=== PATIENT | female | born 1955 | race Caucasian/White ===

== ENCOUNTER 2017-03-05 12:10 | Inpatient (IN) | payer OTHER ==
[~2017-03-05] VITALS: Ht 165.1 cm; Wt 94.8 kg
[2017-03-05] VITALS (8 sets, daily range): BP systolic 132–206; BP diastolic 54–94; PULSE 66–76; RESP 14–20; O2SAT 94–100
[~2017-03-05 12:10] MED LIST: ALBU2.5V4 INHALATION; ALBU8.5H2 INHALATION; ASPI-973 PO; ATEN25TA PO; DOCU250C2 PO; FLUO60TA PO; FLUT9.9S NOSTRIL; HYDR-656 PO; INSU100C8 SUBQ; INSU100I13 SUBQ; LEVO100T6 PO; OXYC5TAB72 PO; POLY17PO6 PO; PRAV10TA2 PO
--- NOTE | 2017-03-05 12:24 | ED.REPORT ---
HPI-Abd Pain F 40 and Over Date of Service Mar 05, 2017 ED Provider: Manohar Bah DO The patient is a 61 year old female with a history of HTN, DM, alcohol, daily aspirin and ibuprofen use who presents to the ED c/o of abdominal pain and bloody stools onset this morning. Associated symptoms include back pain. The pt had a bowel movement at the ED. Per the nurse, she saw the stool and described it as, "bright, red, clots." Pt was drinking alcohol last night. She denies vomiting, dysuria and any other symptoms. Nursing Notes Stated Complaint: ANAL BLEEDING Chief Complaint: Female Abdominal Pain Nursing Notes Reviewed: Yes Allergies: Coded Allergies: Sulfa (Sulfonamide Antibiotics) (Verified Allergy, Severe, WARREN ANNY - RASH, FEVER, SICK, 03/05/17) Scheduled Aspirin (Aspirin) 81 Mg Tablet 81 MG PO QAM Atenolol (Atenolol) 25 Mg Tablet 75 MG PO QAM Fluoxetine (Fluoxetine) 60 Mg Tablet 60 MG PO QAM Insulin Aspart (NovoLOG U100 Insulin Vial) 100 U/Ml U 20 UNIT SUBQ BIDWM WITH BRUNCH AND DINNER Insulin Glargine (Lantus U100 Solostar Insulin Pen) 100 Unit/1 Ml Insuln.pen 40 UNIT SUBQ HS Levothyroxine (Levothyroxine) 100 Mcg Tablet 100 MCG PO QAM Vitamin B Complex 100 No.2 (B-100 Complex) 100 Mg Tablet.er 100 MG PO QAM Scheduled PRN Albuterol HFA (Proair HFA) 8.5 Gm Hfa.aer.ad 1-2 PUFFS INHALATION Q4H PRN PRN For Shortness of Breath Albuterol Neb Soln (Albuterol Neb Soln) 2.5 Mg/3 Ml Vial.neb 1 VIAL INHALATION Q4H PRN PRN For Shortness of Breath Bismuth Subsalicylate (Digestive Relief) 262 Mg/15 Ml Oral.susp 262 MG PO QID PRN PRN For Dyspepsia or Heartburn Fluticasone Propionate (Flonase Allergy Relief) 50 Mcg/Actuation [place].susp 1 SPRAY NOSTRIL DAILY PRN PRN ALLERGIES Hydrocortisone Acetate (Hydrocortisone Acetate) 28.4 Gm Cream..g. 1 APPLIC TP BID PRN PRN ITCHING/PSORIASIS Ibuprofen (Ibuprofen) 100 Mg Tablet 200 MG PO DAILY PRN PRN For Headache hydrOXYzine Hcl (HydrOXYzine Hcl) 25 Mg Tablet 25 MG PO Q4 PRN PRN For Itching General Time Seen by MD: 12:23 Chief Complaint Abdominal pain Hx Obtained From: Patient Arrived By: Walk-in Sudden in Onset?: Yes Onset Occurred: 1 - 4 hours ago Symptom Duration: Since onset Location: : Abdomen lower Quality: Painful Severity: Current: Moderate Associated with: Reports: Hematochezia Pertinent Negative: Pt denies other symptoms Recent Healthcare: No recent doctor visit, No recent hospitalization Similar Sx Previous: No Past Medical History Past Medical History HTN DM Smoking History Current Every Day Smoker (e-cigarette) Social History Alcohol Use: "Social" Other Social History: Good social support, Local resident Ambulatory Status Independent Review of Systems GI: Reports: Abdominal pain, Bloody/tarry stool, Hematochezia, Denies: Vomiting Female: Denies: Dysuria, Hematuria, Incontinence, Urinary frequency, Urinary urgency, Urination decreased, Urination increased Musculoskeletal: Reports: Back pain Complete sys rev & neg: except as marked. Physical Exam Vital Signs Vital Signs (First) Date Time Temp Pulse Resp B/P Pulse Ox O2 Delivery O2 Flow Rate FiO2 03/05/17 12:12 37.2 76 16 188/91 100 Room Air Initial VS: Reviewed General/Constitutional: Awake, Alert, Cooperative Respiratory / Chest: Atraumatic, Breath sounds NL, Breath sounds = bilat Cardiovascular: Heart rate NL, Regular rhythm, Heart sounds NL Abdomen: Atraumatic, Soft, Non-tender Back: Atraumatic, Full range of motion Head / Eyes: Atraumatic, Normocephalic Skin: Atraumatic, Color NL, No rash Rectal for Blood: Positive: Blood - occult heme + No stool in rectal vault Obvious maroonish blood Neurologic: Oriented X3, Speech NL, No motor deficits Upper Extremity / MS: Atraumatic, Full range of motion, No deformity Lower Extremity / Pelvis / MS: Atraumatic, Full range of motion, No deformity Interpretation & Diagnostics Interpretation & Diagnostics: CT ABDOMEN/PELVIS/CT IMPRESSION: 1. No aortic dissection. Atherosclerosis of aorta and coronary arteries. 2. Segment of thickening and stranding involving the splenic flexure and descending colon consistent with colitis. Differential diagnosis includes infectious etiology common femoral triple disease and ischemia. 3. Sigmoid diverticulosis. No active diverticulitis. 4. Remote granulomatous infections inthorax and abdomen. 5. Small hiatal hernia. 6. Severe degenerative disc isease at L5-S1 causing moderate central canal stenosis. Dictated by: Hoang Schmidt M.D. on 03/05/2017 at 14:41 Approved by: Hoang Schmidt M.D. on 03/05/2017 at 15:04 Lab Results Interpretation Result Diagram: 03/05/17 1406 03/05/17 1259 Test 03/05/17 12:59 03/05/17 14:06 03/05/17 15:07 White Blood Count 10.3th/mm3 (3.8-10.1) Red Blood Count 4.54mil/mm3 (3.90-5.20) Mean Corpuscular Volume 90.7fL (81-100) Mean Corpuscular Hemoglobin 31.5pg (27.0-35.0) Mean Corpuscular Hemoglobin Concent 34.7% (32.0-37.0) Red Cell Distribution Width 12.1% (12.3-15.4) Platelet Count 201bil/L (150-400) Neutrophils (%) (Auto) 75.8% (40-74) Lymphocytes (%) (Auto) 16.9% (14-46) Monocytes (%) (Auto) 5.0% (4-12) Eosinophils (%) (Auto) 1.6% (0-5) Basophils (%) (Auto) 0.5% (0-3) Prothrombin Time 10.8sec (8.1-12.5) Prothromb Time International Ratio 1.01ratio Sodium Level 132mEq/L (134-144) Potassium Level 4.0mEq/L (3.5-5.2) Chloride Level 92mEq/L (97-108) Carbon Dioxide Level 23mmol/L (18-29) Blood Urea Nitrogen 12mg/dL (8-27) Creatinine 0.65mg/dL (0.57-1.00) Estimat Glomerular Filtration Rate 132mL/min (>59) Glucose Level 224mg/dL (60-99) Calcium Level 9.1mg/dL (8.5-10.1) Magnesium Level 1.3mg/dL (1.6-2.6) Total Bilirubin 0.5mg/dL (0.0-1.2) Aspartate Amino Transf (AST/SGOT) 45U/L (0-50) Alanine Aminotransferase (ALT/SGPT) 46U/L (0-32) Alkaline Phosphatase 72U/L (25-165) Total Protein 7.4g/dL (6.4-8.4) Albumin 3.7g/dL (3.4-5.0) Hemoglobin 13.2g/dL (12.0-15.6) Hematocrit 38.8% (35.0-46.0) Hold Urine Received (Received) ECG Interpretation ECG Interpretation: probable left atrial enlargement Left ventricular hyptertrophy Time: 12:55 Interpreted by: ED physician Normal ECG Interpretation: Normal sinus rhythm (rate 69) Re-Eval/Medical Decision Med Decision/Clinical Course Probable ischemic colitis based on history and findings. Given the profound hypertension and diffuse abdominal pain CT was performed to further exclude other pathology. Given the amount of pain and reported bleeding that the patient has had, we will plan to admit her, continue IV hydration. Case is discussed with GI who has made further recommendations which are listed below. Re-Evaluation/Progress : Time of Eval: 13:17 Re-Evaluation/Progress Note: Pt rechecked. Rectal exam performed. No stool in rectal vault. Obvious maroonish blood Consultation #1: Referral / Consult Name: Bertram Alford MD Call Returned at: 15:31 Note: GI: no antibiotics, dc ppi drip, start oral PPI, liquid diet, po antihypertensives to reach appropriate BP, probable colonoscopy as an outpt. will see in AM unless unstable. 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 Dr. Paz's accepts admit. Counseled Regarding: Diagnosis, Lab results, Need for admission Discharge & Departure Primary Impression: Colitis Disposition: ADMITTED TO HOSPITAL Discharge Condition All VS Reviewed: Yes Condition: Stable Referrals: [facility] Scribe Attestation Portion of this note were transcribed by Jeanne Perea. I, Dr. Bah, personally performed the history, physical exam, and medical decision-making: I reviewed and confirmed the accuracy for the information in the transcribed note. Signed by: jesusita Leach, 03/05/17 1500 copies to: [facility] Manohar Bah DO Mar 05, 2017 12:24 Jeanne Perea Mar 05, 2017 12:34
[2017-03-05] MEDS ORDERED: 0.9% Sodium Chloride 1,000 ML IV ONE (12:33)
[2017-03-05] MEDS ORDERED: Pantoprazole 4 mg/mL 10 mL Inj IVPUSH ONE (12:35)
[2017-03-05] MEDS ORDERED: Pantoprazole Inj 80 MG, Pharmacy To Mix 1 EA in 0.9% Sodium Chloride 80 ML IV ONE ×2 (12:35)
[2017-03-05 13:04] LABS: BASOPHILS % (AUTO) 0.5 % (0-3); EOSINOPHILS % (AUTO) 1.6 % (0-5); Mean Corpuscular Hemoglobin 31.5 pg (27.0-35.0); Mean Corpuscular Volume 90.7 fL (81-100); NEUTROPHILS % (AUTO) 75.8 % (40-74); Platelet Count 201 bil/L (150-400)
[2017-03-05 13:22] LABS: INR 1.01 ratio
[2017-03-05] MEDS: Ondansetron 2 mg/mL 2 mL Inj IVPUSH PRN ×3 (13:25→21:48)
[2017-03-05 13:31] LABS: Magnesium 1.3 mg/dL (1.6-2.6)
[2017-03-05] MEDS ORDERED: Magnesium Sulf 4 Gm/100 mL H2O 4 GM in IV Premix 1 EACH IV ONE (13:35)
--- NOTE | 2017-03-05 15:06 | DRSVH ---
PROCEDURE: CT ANG CHEST/ABD/PEL W/WO CIBTRAST (PNL-7502) INDICATIONS: severe abd pain, hypertensive TECHNIQUE: Precontrast 5 mm thick sections acquired from the lung apices to the iliac crests. After the adminis tration of intravenous contrast, 3 mm thick sections again acquired from the lung apices to the iliac crests. 3-dimensional maximum intensity projection (MIP) oblique sagittal and coronal reformats wer e then acquired, and/or 3-dimensional volume rendering reformats. For radiation dose reduction, the following was used: automated exposure control. COMPARISON: [facility], US, ABDOMEN LTD, 05/18/2016, 9:39. [facility], CT, CT ABD PELVIS W CON, 05/18/2016, 1:09. FINDINGS: Image quality: Excellent. AORTA: Aorta is normal in caliber. No aortic aneurysm or dissection. There is moderate calcification in aorta involving the aortic arch and distal aorta consistent with atherosclerosis. There is mild f usiform dilation of distal abdominal aorta below the renal artery measured 2.1 cm. CHEST: Lungs and pleura: There are calcified nodules in right upper lobe consistent with old granulomas. No acute airspace opacities. No pleural effusions or pneumothorax. Central and peripheral airways are patent and normal in caliber. Mediastinum: Heart size is normal. No pericardial effusion. Coronary artery calcification consiste nt with other sclerosis. No mediastinal or hilar adenopathy by size criteria. Calcified lymph nodes in mediastinum and dayne bilaterally are consistent with sequelae of lipomatous infection. Central pul monary arteries are normal in size. Esophagus is normal in caliber. There is a small hiatal hernias. Bones and chest wall: Normal sist axillary lymph nodes are noted bilaterally, likely reactive. Thyro id gland is atrophic. No suspicious bony lesions. No vertebral body compression fractures. ABDOMEN: Vasculature: Celiac trunk and mesenteric arteries are patent. Renal arteries are also patent. Solid organs: Multiple calcified nodules in spleen and liver are consistent with old granulomas. Leanna er and spleen are normal in size. Gallbladder is surgically absent. Biliary system is non dilated. Pancreas enhances normally. No adrenal nodules. Both kidneys are normal in size and enhancement, w ithout hydronephrosis. Peritoneum and bowel: There is segmental thickening and stranding in the splenic flexure and descend ing colon consistent with colitis. No free fluid or air. Bowel loops are normal in caliber. There a re scattered sigmoid diverticula. No evidence for active diverticulitis. Nodes and vessels: No retroperitoneal or mesenteric adenopathy by size criteria. Inferior vena cava is normal in morphology. Bones: No suspicious bony lesions. No vertebral body compression fractures. There is severe degene rative disc disease at L5-S1 causing moderate central canal stenosis. Miscellaneous: No ventral hernias. IMPRESSION: 1. No aortic dissection. Atherosclerosis of aorta and coronary arteries. 2. Segment of thickening and stranding involving the splenic flexure and descending colon consistent with colitis. Differential diagnosis includes infectious etiology common femoral triple disease and i schemia. 3. Sigmoid diverticulosis. No active diverticulitis. 4. Remote granulomatous infections inthorax and abdomen. 5. Small hiatal hernia. 6. Severe degenerative disc isease at L5-S1 causing moderate central canal stenosis. Dictated by: Hoang Schmidt M.D. on 03/05/2017 at 14:41 Approved by: Hoang Schmidt M.D. on 03/05/2017 at 15:04
[2017-03-05] MEDS ORDERED: metroNIDAZOLE Inj 500 MG in IV Premix 1 EACH IV ONE (15:10)
[2017-03-05] MEDS ORDERED: levoFLOXacin Inj 750 MG in IV Premix 1 EACH IV ONE (15:10)
[2017-03-05] MEDS ORDERED: 0.9% Sodium Chloride 1,000 ML IV SCH (15:10)
[2017-03-05] MEDS ORDERED: HYD5C TOP (16:10)
[2017-03-05] MEDS ORDERED: HYDR28.470 TP (16:11)
[2017-03-05] MEDS ORDERED: VITA100T4 PO (16:13)
[2017-03-05] MEDS ORDERED: IBUP100T7 PO (16:13)
[2017-03-05] MEDS ORDERED: BISM-95 PO (16:13)
[2017-03-05] MEDS ORDERED: Polyethylene Glycol (PEG) 17 Gm Powder PO PRN (17:15)
[2017-03-05] MEDS: 0.9% Sodium Chloride 1,000 ML IV SCH (17:15)
[2017-03-05] MEDS ORDERED: Albuterol HFA 60 Puff 8 Gm Inhaler INHALATION PRN (17:25)
--- NOTE | 2017-03-05 17:28 | PCM.HPMED ---
Subjective Date of Service Mar 05, 2017 Primary Provider: Admitting Physician: Richard Paz DO Primary Care Physician: Other,Physician Attending Physician: Richard Paz DO Chief Complaint: Abdominal pain and bloody stool History of Present Illness: Patient is a 61-year-old female past medical history significant for hypertension diabetes mellitus in addition to alcohol use, tobacco dependence now in remission, presenting to the emergency department earlier today with a complaint of abdominal pain and bloody stools starting earlier this morning. Notes pain is worse in abdomen but also radiates to back. She had multiple bowel movements today which were containing of bright red clots, including one in the emergency department. She was drinking alcohol last night but has not been smoking cigarettes for the past few weeks that she began taping. Denies any nausea or vomiting. She had not been experiencing chills early in the day but she does endorse some chills during my evaluation at bedside on hospital floor. She has never had any abdominal pain such as this before, never experienced bloody diarrhea. She denies any associated chest pains or shortness of breath. Patient denies any headaches or dizziness or blurry vision. She had been in good state of health up until yesterday. Denies any sick contacts. Review of Systems: A 10 point review of systems was conducted and entirely negative excepting pertinent positives and negatives included in above history of present illness Allergies Coded Allergies: Sulfa (Sulfonamide Antibiotics) (Verified Allergy, Severe, WARREN ANNY - RASH, FEVER, SICK, 03/05/17) Home Medications Aspirin (Aspirin) 81 Mg Tablet 81 MG PO QAM Atenolol (Atenolol) 25 Mg Tablet 75 MG PO QAM Fluoxetine (Fluoxetine) 60 Mg Tablet 60 MG PO QAM Insulin Aspart (NovoLOG U100 Insulin Vial) 100 U/Ml U 20 UNIT SUBQ BIDWM WITH BRUNCH AND DINNER Insulin Glargine (Lantus U100 Solostar Insulin Pen) 100 Unit/1 Ml Insuln.pen 40 UNIT SUBQ HS Levothyroxine (Levothyroxine) 100 Mcg Tablet 100 MCG PO QAM Vitamin B Complex 100 No.2 (B-100 Complex) 100 Mg Tablet.er 100 MG PO QAM Scheduled PRN Albuterol HFA (Proair HFA) 8.5 Gm Hfa.aer.ad 1-2 PUFFS INHALATION Q4H PRN PRN For Shortness of Breath Albuterol Neb Soln (Albuterol Neb Soln) 2.5 Mg/3 Ml Vial.neb 1 VIAL INHALATION Q4H PRN PRN For Shortness of Breath Bismuth Subsalicylate (Digestive Relief) 262 Mg/15 Ml Oral.susp 262 MG PO QID PRN PRN For Dyspepsia or Heartburn Fluticasone Propionate (Flonase Allergy Relief) 50 Mcg/Actuation [place].susp 1 SPRAY NOSTRIL DAILY PRN PRN ALLERGIES Hydrocortisone Acetate (Hydrocortisone Acetate) 28.4 Gm Cream..g. 1 APPLIC TP BID PRN PRN ITCHING/PSORIASIS Ibuprofen (Ibuprofen) 100 Mg Tablet 200 MG PO DAILY PRN PRN For Headache hydrOXYzine Hcl (HydrOXYzine Hcl) 25 Mg Tablet 25 MG PO Q4 PRN PRN For Itching PMH HTN DM II Tobacco dependence in remission. Surgical History Appendectomy Family History Patient notes both parents of cancer. Her father testicular cancer, mother blood cancer. Recall no other medical history Social History Hx Alcohol Use: Yes Alcoholic Drinks Per Day: 1-2 per week Hx Substance Use: No Smoking Status: Current Every Day Smoker (e-cigarette) Exam Vital Signs Vital Sign - Last Date Time Temp Pulse Resp B/P Pulse Ox O2 Delivery O2 Flow Rate FiO2 03/05/17 17:06 36.8 69 20 155/63 98 Room Air General: Alert, Oriented X3, Cooperative, Mild Distress Eyes: PERRLA, EOMI, Other (sclera pink) Mouth: Mucous Membranes Dry, Other (mucous membranes are pink) Chest & Lungs: Clear to auscultation & percussion Cardiovascular: Regular Rate/Rhythm Abdomen: Tender, Non-distended, Other (normoactive, no guarding. ) Extremities: No cyanosis/clubbing/edma bilat Neurological: Grossly Neurologically Intact Lab and Diagnostics Result Diagram: 03/05/17 1406 03/05/17 1259 Assessment & Plan 61-year-old female presenting with abdominal pain bloody stool admitted for further medical evaluation and treatment # Acute abdominal pain #Bloody stools # Probable Ischemic colitis - CT scan nondiagnostic however given patient's clinical presentation and risk factors this seems certainly to be the most likely diagnosis - No evidence of infections will not continue antibiotic therapy and admission -Gastroenterology's Dr. Alford was consulted during ER presentation and will follow patient - Holding patient's aspirin while active bleeding we will consider restarting once stable especially in the setting of possible ischemic colitis. - Continue patient on clear liquid diet overnight in addition to intravenous fluid therapy. - As needed medications will be provided for pain, and nausea should represent. - Currently patient notes good control of symptoms. #Diabetes mellitus - Patient will place on sliding scale insulin this time - We will restart home Lantus with advancement of diet. Pain Evaluation: Adequate Pain Control GI Prophylaxis: Not indicated VTE Mechanical Devices: Intermittant Pneumatic CD Resuscitation Status: CPR: Attempt Resuscitation Time spent 55 minutes Richard Paz DO Mar 05, 2017 17:28
[2017-03-05] MEDS ORDERED: Glucose 40% Oral Gel 15 Gm Tube PO PRN (17:30)
[2017-03-05] MEDS: Insulin LISPRO 300 Unit/3 mL Inj SUBQ SCH ×2 (17:30→22:00)
[2017-03-05] MEDS ORDERED: Albuterol 2.5 mg/3 mL Inhalation Solution NEB PRN (17:35)
[2017-03-05] MEDS ORDERED: hydrOXYzine Pamoate 25 mg Capsule PO PRN (17:35)
--- NOTE | 2017-03-05 18:40 | NUR ---
Admit Patient arrived at 1740 from ED via stretcher. IV infusing. A/Ox3. Patient informed of plan of care and oriented to room. Pt reports nausea, IV Zofran given and effective. Admit and med rec completed by admit nurse.
[2017-03-06] VITALS (8 sets, daily range): BP systolic 128–151; BP diastolic 75–85; PULSE 64–71; RESP 17–18; O2SAT 93–96
[2017-03-06] MEDS: Ondansetron 2 mg/mL 2 mL Inj IVPUSH PRN ×7 (00:53→22:53)
[2017-03-06] MEDS: 0.9% Sodium Chloride 1,000 ML IV SCH ×3 (03:29→23:45)
--- NOTE | 2017-03-06 04:53 | NUR ---
NAUSEA/PAIN pt. c/o nausea administered prn zofran with a state of relief and pain well managed by prn morphine, pt. stated she's able to sleep for a couple of hours, no emesis and BM reported, continue on tele monitoring SR 68 per groundwater monitoring technician, VSS afebrile, has been up in the BR, steady on feet, uses call light appropriately, all needs attended, VSS afebrile, continues care.
[2017-03-06 07:03] LABS: BASOPHILS % (AUTO) 0.3 % (0-3); EOSINOPHILS % (AUTO) 1.5 % (0-5); Mean Corpuscular Hemoglobin 31.1 pg (27.0-35.0); Mean Corpuscular Volume 95.3 fL (81-100); NEUTROPHILS % (AUTO) 73.6 % (40-74); Platelet Count 183 bil/L (150-400)
[2017-03-06] MEDS: Insulin LISPRO 300 Unit/3 mL Inj SUBQ SCH ×4 (09:40→21:33)
--- NOTE | 2017-03-06 11:16 | NUR ---
Pain/Nausea Patient had nausea w/emesis immediately after consuming jello. IV Zofran 4mg administered with some relief. Pt declined IV morphine at that time. Hospitalist made aware. Patient later requested Morphine for abdominal pain 04/24. An additional dose of 4mg Zofran was also given as the pt was still mildly nauseated.
--- NOTE | 2017-03-06 17:48 | PCM.PNMED ---
Subjective Date of Service Mar 06, 2017 Subjective Patient remains in significant discomfort due to abdominal pain. Appetite is poor, she is nauseated not even able to tolerate Jell-O. No fever or chills however. Denies bloody stools overnight. Exam Vital Signs Vital Sign - Last Date Time Temp Pulse Resp B/P Pulse Ox O2 Delivery O2 Flow Rate FiO2 03/06/17 13:45 36.9 64 18 142/83 96 Room Air Intake and Output 03/05/17 03/05/17 03/06/17 Cumulative From/Thru 15:00 23:00 07:00 03/05/17 12:12 - 03/06/17 05:16 Intake Total 1099 ml 1153 ml 1376 ml 3628 ml Output Total 600 ml 600 ml Balance 1099 ml 1153 ml 776 ml 3028 ml Intake Oral 340 ml 340 ml IV Total 1099 ml 1153 ml 1036 ml 3288 ml Output Urine Total 600 ml 600 ml Exam General: Alert, Oriented X3, Cooperative, Moderate Distress Chest & Lungs: Clear to auscultation & percussion Cardiovascular: Regular Rate/Rhythm Abdomen: Tender, without overt guardingbilat Neurological: Grossly Neurologically Intact IVs and Medications Medications Reviewed: Medications were reviewed in detail Lab and Diagnostics Result Diagram: 03/06/1763403/06/1735 Assessment & Plan 61-year-old female presenting with abdominal pain bloody stool admitted for further medical evaluation and treatment # Acute abdominal pain #Bloody stools # Probable Ischemic colitis - CT scan nondiagnostic however given patient's clinical presentation and risk factors this seems certainly to be the most likely diagnosis - No evidence of infections will not continue antibiotic therapy and admission -Gastroenterology's Dr. Alford was consulted and following patient in addition - Holding patient's aspirin while active bleeding we will consider restarting once stable especially in the setting of possible ischemic colitis. - Continue patient on clear liquid diet overnight in addition to intravenous fluid therapy. - As needed medications will be provided for pain, and nausea should represent. - Currently patient notes good control of symptoms. #Diabetes mellitus - Patient will place on sliding scale insulin this time - We will restart home Lantus with advancement of diet. Pain Evaluation: Adequate Pain Control GI Prophylaxis: Not indicated VTE Mechanical Devices: Intermittant Pneumatic CD Resuscitation Status: CPR: Attempt Resuscitation Time spent 25 minutes Richard Paz DO Mar 06, 2017 17:48
--- NOTE | 2017-03-06 18:16 | CONS ---
[address] [address] CONSULTATION REPORT PATIENT: LEVI OSMAN : 1955 MR#: [id number] ADMIT: 03/05/2017 JOB ID: [id number] DATE OF SERVICE: 03/06/2017 GASTROENTEROLOGY CONSULTATION: REQUESTING PROVIDER: Manohar Bah DO REASON FOR CONSULTATION: Colitis. HISTORY OF PRESENT ILLNESS: This is a 61-year-old female with no prior history of inflammatory bowel disease. She has a couple of bowel movements, soft, formed, daily on average. No history of chronic diarrhea. She was in her usual state of health, complaining of abdominal pain mostly on the left side associated with bloody loose stools starting yesterday. There was some radiation of the pain into the back. No recent antibiotics, sick contacts, sick exposures. No one else with a similar problem. No new well water or consumption from an unusual water source. No foreign travel. In the ED she was found to have a very mild leukocytosis at 10.3, hemoglobin 14.3. She is a little hypertensive. A CAT scan revealed a segment of bowel thickening involving the splenic flexure and descending colon. She had sigmoid diverticulosis but no diverticulitis. She had a small hiatal hernia and severe degenerative disc disease through L5 to S1. As part of the protocol she had a chest CT which did not reveal any acute pathology. ALLERGIES: NO KNOWN DRUG ALLERGIES APART FROM SULFA. MEDICATIONS: The patient was taking aspirin, ibuprofen, albuterol, atenolol, fluoxetine, hydroxyzine, Flonase, bismuth subsalicylate, insulin, levothyroxine, hydrocortisone topical, vitamin B complex. She uses a stool softener at times and is written for Colace and/or MiraLAX. She also apparently has a script for oxycodone and pravastatin. PAST MEDICAL HISTORY: Diabetes, hypertension, reactive airway disease. PAST SURGICAL HISTORY: Appendectomy. FAMILY HISTORY: No GI cancers reported. SOCIAL HISTORY: The patient is a smoker. She does take regular alcohol as well. REVIEW OF SYSTEMS: There have not been any fevers or chills here in the hospital. No report of any unsolicited weight loss. She has never had a colonoscopy. PHYSICAL EXAMINATION: Temperature 36.9, pulse 64, breathing 18, blood pressure 142/83, pulse ox 96% on room air. The patient was in no distress. Alert, oriented, appropriate, cooperative, conversational. Skin: Warm and dry. Sclerae anicteric. No significant peripheral pitting edema. Lungs clear bilaterally. Good respiratory effort. Heart regular. No significant peripheral edema. Abdomen is soft. Bowel sounds present. Mild tenderness to palpation throughout, but perhaps more so on the left side. No guarding appreciated. LABORATORY: White count is now 11.4, hematocrit 38.3 with hydration, platelets 183. Sodium 135, potassium 4.0, chloride 99, bicarb 25, BUN 11, creatinine 0.65, glucose 178, calcium 7.9. Bilirubin 0.6, AST 33, ALT 35, alk phos 66, albumin 3.5. INR 1.01. IMAGING: As above. ASSESSMENT AND RECOMMENDATIONS: A 61-year-old female with what appears to be acute ischemic colitis. This is likely a consequence of her history of hypertension, smoking, and NSAID use on a regular basis. I explained the pathophysiology to the patient and that this is an entity that almost always resolves simply with time, hydration, and management of pain symptoms. I would be okay with a clear liquid diet through today, advancing to a full soft diet tomorrow if she is clinically improved. Once the patient is able to maintain adequate hydration and nutrition, and receives sufficient analgesia with oral meds, she can be eligible for discharge home. It is still quite reasonable to request a stool PCR for enteric pathogens should she have any further diarrhea, but again this is almost certainly going to be ischemic in nature. In that the patient has never had a colonoscopy, I think that it would be appropriate to pursue this as an outpatient in the next 3-4 weeks, ideally when all of the acute pathology has resolved.
[2017-03-07] MEDS: Ondansetron 2 mg/mL 2 mL Inj IVPUSH PRN ×4 (02:50→19:08)
--- NOTE | 2017-03-07 04:16 | NUR ---
Pain/Nausea c/o 7-9/10 abdominal pain. Administered PRN Q4hr IV morphine. pt reported pain 4/10, which is tolerable for her. pt reported nausea after ambulating to the restroom x2. administered IV Zofran, which is effective. will continue to monitor and provide care.
[2017-03-07 06:04] VITALS: BP 161/81; PULSE 65; RESP 16; O2SAT 99
[2017-03-07 07:01] LABS: BASOPHILS % (AUTO) 0.3 % (0-3); EOSINOPHILS % (AUTO) 3.7 % (0-5); MONOCYTES % (AUTO) 5.5 % (4-12); Mean Corpuscular Hemoglobin 31.6 pg (27.0-35.0); Mean Corpuscular Volume 97.6 fL (81-100); NEUTROPHILS % (AUTO) 73.5 % (40-74); Platelet Count 160 bil/L (150-400)
[2017-03-07] MEDS: Insulin LISPRO 300 Unit/3 mL Inj SUBQ SCH ×4 (08:00→21:31)
[2017-03-07 10:06] VITALS: BP 155/67; PULSE 65; RESP 16; O2SAT 97
[2017-03-07] MEDS: 0.9% Sodium Chloride 1,000 ML IV SCH ×2 (10:08→20:48)
--- NOTE | 2017-03-07 11:09 | NUR ---
Case Management: Clarification of patient status: Inpatient per MD order on 03/07/17. Yuri Holley RN
[2017-03-07] MEDS: Alum-Mag Hydrox-Simeth 30 mL Suspension PO PRN (12:21)
[2017-03-07 13:22] VITALS: BP 144/83; PULSE 63; RESP 18; O2SAT 97
--- NOTE | 2017-03-07 14:03 | PCM.PNMED ---
Subjective Date of Service Mar 07, 2017 Subjective pt still required iv morphine no BM still has nausea, no vomiting, poor appetite. britney worked for nausea willing to advance diet. stool PCR not sent yet Exam Vital Signs Vital Sign - Last Date Time Temp Pulse Resp B/P Pulse Ox O2 Delivery O2 Flow Rate FiO2 03/07/17 06:04 37.0 65 16 161/81 99 Nasal Cannula 1.00 Intake and Output 03/06/17 03/06/17 03/07/17 Cumulative From/Thru 15:00 23:00 07:00 03/05/17 12:12 - 03/07/17 06:04 Intake Total 300 ml 1459 ml 1708 ml 7095 ml Output Total 350 ml 400 ml 700 ml 2050 ml Balance -50 ml 1059 ml 1008 ml 5045 ml Intake Oral 300 ml 300 ml 380 ml 1320 ml IV Total 1159 ml 1328 ml 5775 ml Output Urine Total 350 ml 400 ml 700 ml 2050 ml # Bowel Movements 0 0 Exam NAD, comfortably laying down on the bed no JVD, MMM, no LAD RRR, nl s1, s2 no mrg CTAB, no w,c S, ND, hypoactive BS, LUQ td+ warm, no edema, pulses 2/2 Lab and Diagnostics Result Diagram: 03/07/1762403/07/17624 Assessment & Plan 61-year-old female presenting with abdominal pain bloody stool admitted for further medical evaluation and treatment Acute, active # Acute abdominal pain with hematochezia secondary to ischemic colitis, POA, CT 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 Linn was consulted, recommended outpatient colonoscopy, possibly stool PCR. -Overweight stool PCR to rule out infectious causes -Advanced diet to soft today -Hold off on any antibiotics and monitor symptoms closely -We will try to use Percocet instead of morphine for pain control in anticipation of discharge in 1-2days Probable acute blood loss anemia or dilutional, POA, h/h dropped from 14.3/41.2 to 11.9/36.8 today, no signs of active bleeding -monitor h/h daily for now chronic, stable #Diabetes mellitus -continue lispro SS and lantus GI Prophylaxis: Not indicated VTE Mechanical Devices: Intermittant Pneumatic CD Resuscitation Status: CPR: Attempt Resuscitation Time spent 35min Felton Macias MD Mar 07, 2017 08:14
--- NOTE | 2017-03-07 17:46 | NUR ---
Diet advanced Pt. tolerated small amounts of clear liquids this morning, and has been able to tolerate pudding and crackers this afternoon. Still requiring PRN pain and nausea medication. Receiving IV NS 100/hr.
[2017-03-07 20:00] VITALS: BP 155/72; PULSE 65; RESP 18; O2SAT 95
--- NOTE | 2017-03-07 21:52 | PROG NOTE ---
[address] [address] PROGRESS NOTE PATIENT: LEVI OSMAN : 1955 MR#: [id number] ADMIT: 03/05/2017 JOB ID: [id number] DATE: 03/07/2017 SUBJECTIVE: The patient has been trying to decline IV pain meds. Not entirely successful today. Overall, she feels much better when compared with yesterday. She has not had any significant bowel movement. She has really only tired clear liquid diet. OBJECTIVE: Vital signs demonstrate blood pressures that are slightly elevated. Pulses are acceptable in the 60s. Breathing comfortably, afebrile, 95% on room air. Alert, oriented, appropriate, cooperative, conversational. Abdomen was soft. Minimal discomfort to palpation along the left side of the abdomen. LABORATORY DATA: White count 12.7, normal differential, hemoglobin 11.9. Comprehensive metabolic panel unremarkable. ASSESSMENT AND RECOMMENDATION: This is a 61-year-old female with what appears to be an episode of acute ischemic colitis. She is slowly improving. Leukocytosis persists, but at present, I would not recommend antibiotic be started. Continued supportive care with maintenance of acceptable blood pressures and adequate IV/oral hydration should be the mainstay of therapy. Perhaps the patient can advance to a full liquid soft diet tomorrow if tolerated.
[2017-03-08 00:08] VITALS: BP 158/76; PULSE 64; RESP 17; O2SAT 97
[2017-03-08] MEDS: Ondansetron 2 mg/mL 2 mL Inj IVPUSH PRN ×4 (00:18→20:00)
[2017-03-08 04:40] VITALS: BP 165/98; PULSE 67; RESP 18; O2SAT 97
--- NOTE | 2017-03-08 05:39 | NUR ---
Nausea/Pain Pt complains of abdominal pain 6-03/24. Q4h IV morphine reduces pain to manageable level for her. Pt continues to have nausea especially after ambulation. Zofran effective.
[2017-03-08] MEDS: 0.9% Sodium Chloride 1,000 ML IV SCH ×2 (06:41→15:56)
[2017-03-08] MEDS: oxyCODONE-Acetamin 5-325 mg Tablet PO PRN ×4 (07:53→22:05)
[2017-03-08] MEDS: Insulin LISPRO 300 Unit/3 mL Inj SUBQ SCH ×4 (07:56→22:06)
[2017-03-08 08:02] VITALS: BP 174/89; PULSE 64; RESP 16; O2SAT 95
--- NOTE | 2017-03-08 08:47 | NUR ---
Elevated systolic BP 174/89 and pulse 64. Given Atenolol as ordered. patient is asymptomatic. follow up BP 160/87, pulse 63. PRN pain medication was given as ordered for abdomen pain 01/22 with effective results. Will cook constantino hospitalist with follow up BP. Will continue to monitor BP and pain.
[2017-03-08 12:04] VITALS: BP 169/93; PULSE 61; RESP 16; O2SAT 96
--- NOTE | 2017-03-08 14:18 | NUR ---
Elevated systolic BP 169/84. patient is asymptomatic and watching TV comfortably. Malcolm weber hospitalist. awaiting response back.
--- NOTE | 2017-03-08 15:27 | PCM.PNMED ---
Subjective Date of Service Mar 08, 2017 Subjective pt was still in pain, required morphine frequently, stool was not yet, decided to keep full liquid diet given her worsening pain, denied bloody stools since yesterday Exam Vital Signs Vital Sign - Last Date Time Temp Pulse Resp B/P Pulse Ox O2 Delivery O2 Flow Rate FiO2 03/08/17 12:04 37.2 61 16 169/93 96 03/08/17 08:02 Room Air 03/08/17 00:08 1.00 Intake and Output 03/07/17 03/07/17 03/08/17 Cumulative From/Thru 15:00 23:00 07:00 03/05/17 12:12 - 03/08/17 06:15 Intake Total 1198 ml 1904 ml 10064 ml Output Total 775 ml 800 ml 3625 ml Balance 423 ml 1104 ml 6572 ml Intake Oral 230 ml 700 ml 2250 ml IV Total 968 ml 1204 ml 7947 ml Output Urine Total 775 ml 800 ml 3625 ml # Bowel Movements 0 0 Exam NAD, comfortably laying down on the bed no JVD, MMM, no LAD RRR, nl s1, s2 no mrg CTAB, no w,c S, ND, hypoactive BS, LUQ td+ warm, no edema, pulses 2/2 IVs and Medications Medications Reviewed: Medications were reviewed in detail Lab and Diagnostics Result Diagram: 03/07/1762403/07/17624 Assessment & Plan 61-year-old female presenting with abdominal pain bloody stool admitted for further medical evaluation and treatment Acute, active # Acute abdominal pain with hematochezia secondary to ischemic colitis, POA, CT 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 Linn was consulted, recommended outpatient colonoscopy, possibly stool PCR. -pt still clinically not improving, although hematochezia cleared up, still require iv opioid frequently. -will get stool PCR to rule out infectious causes, suspicion is low -clear liquid diet today and see response -Hold off on any antibiotics and monitor symptoms closely -We will try to use Percocet instead of morphine for pain control in anticipation of discharge in 1-2days -appreciate daily follow up by Probable acute blood loss anemia or dilutional, POA, h/h dropped from 14.3/41.2 to 11.9/36.8 on 03/07, no signs of active bleeding -monitor h/h daily for now chronic, stable #Diabetes mellitus -continue lispro SS and lantus dispo: pending given persistent sx GI Prophylaxis: Not indicated VTE Mechanical Devices: Intermittant Pneumatic CD Resuscitation Status: CPR: Attempt Resuscitation Time spent 35min Felton Macias MD Mar 08, 2017 15:27
--- NOTE | 2017-03-08 16:20 | NUR ---
Social Work- Brief Note/ Multidisciplinary Rounds Data: EMR reviewed. Pt is a 61 year old female admitted for lower GI bleed. Pt's NOK is Marty Henderson. Pt's insurance is [facility] [employer] [facility]. Pt's PCP is Bruna Rosenthal at the [facility]. SW met with pt at bedside regarding discharge plan, SW role explained. Pt alert and oriented x3. Pt resides on [place] with her spouse. Pt is independent with ADLs and self-care and drives. Pt has no concerns about Rx. Pt to discharge home with her spouse to transport, no discharge needs identified. SW will continue to follow. Assessment: Pt who is independent at baseline. Plan: Pt to discharge home with her spouse to transport, no discharge needs identified. SW will continue to follow. ELIZABETH Veras
[2017-03-08 17:17] VITALS: BP 177/92; PULSE 60; RESP 15; O2SAT 97
--- NOTE | 2017-03-08 17:19 | NUR ---
passing and bowel sound present all four quadrants. Addendum: 03/08/17 at 1720 by ONEL ELI RN Amended: Links added.
--- NOTE | 2017-03-08 17:25 | NUR ---
BP BP 177/92, pulse 60. New orders to give Labetolol if BP more than 180. Patient is asymptomatic. Continue to monitor.
[2017-03-08] MEDS ORDERED: Sodium Biphos-Phos 133 mL Enema RECTAL ONE (18:05)
--- NOTE | 2017-03-08 18:22 | NUR ---
New orders New orders from Dr. lepe for Enema. followed orders. continue to monitor constipation
[2017-03-08 22:04] VITALS: BP 177/81; PULSE 65; RESP 18; O2SAT 96
--- NOTE | 2017-03-08 22:37 | PROG NOTE ---
[address] [address] PROGRESS NOTE PATIENT: LEVI OSMAN : 1955 MR#: [id number] ADMIT: 03/05/2017 JOB ID: [id number] DATE: 03/08/2017 SUBJECTIVE: The patient has still not had a bowel movement. She has therefore not felt like eating. She has been able to manage clear liquids and has had a little bit of pudding-like substance today. She continues with abdominal discomfort. OBJECTIVE: Vitals are stable. Blood pressures remain elevated. The patient's abdomen is soft. No guarding. CBC not done today. ASSESSMENT AND RECOMMENDATIONS: This is a 61-year-old female with probable acute ischemic colitis. I recommend one or two enemas this evening to see if evacuation of her bowel improves symptoms and perhaps will allow her to advance her diet a little more easily. Otherwise, continue hydration.
[2017-03-09] MEDS: Alum-Mag Hydrox-Simeth 30 mL Suspension PO PRN (00:50)
[2017-03-09] MEDS: oxyCODONE-Acetamin 5-325 mg Tablet PO PRN ×2 (02:02→07:45)
[2017-03-09 02:08] VITALS: BP 183/113; PULSE 62; RESP 20; O2SAT 95
[2017-03-09] MEDS: 0.9% Sodium Chloride 1,000 ML IV SCH (04:15)
[2017-03-09 04:18] VITALS: BP 157/78; PULSE 67
--- NOTE | 2017-03-09 04:24 | NUR ---
Constipation Pt received fleets enema in prior shift. Pt has not had a BM and does not want a second one and states "I don't think there is anything in there."
[2017-03-09 07:22] VITALS: BP 170/91; PULSE 68; O2SAT 96
[2017-03-09] MEDS: Insulin LISPRO 300 Unit/3 mL Inj SUBQ SCH (07:39)
--- NOTE | 2017-03-09 07:56 | NUR ---
IV infiltration Slight swelling due to IV infiltration on right hand. no redness, denies pain at this time, no bruising. IV fluids stopped and discontinued IV to right hand. Ice applied. dalton weber hospitalist. awaiting call back. Called IV therapy.
[2017-03-09 08:02] LABS: Magnesium 1.5 mg/dL (1.6-2.6); Phosphorus 2.7 mg/dL (2.5-4.9)
[2017-03-09 08:04] LABS: Mean Corpuscular Hemoglobin 31.8 pg (27.0-35.0); Mean Corpuscular Volume 97.4 fL (81-100); Platelet Count 182 bil/L (150-400)
[2017-03-09 08:05] LABS: BASOPHILS % (AUTO) 0.2 % (0-3); EOSINOPHILS % (AUTO) 3.6 % (0-5); MONOCYTES % (AUTO) 5.9 % (4-12); NEUTROPHILS % (AUTO) 70.8 % (40-74)
--- NOTE | 2017-03-09 10:21 | NUR ---
Enema No BM yet. Offered Enema and patient states," let me eat breakfast first, i am hungry." patient ate 755 breakfast. Offered Enema around 1000 and states," let me use the bathroom, let me try it first." Will notify hospitalist during morning meeting at 1030.
--- NOTE | 2017-03-09 10:54 | NUR ---
Patient request Cook paged Dr. Heredia r/t patient wanting to go home and not to have another IV start. doctor also aware patient had large BM this shift. Notified r/t low magnesium lab and aware. per Dr. Heredia " no IV start then." patient aware and agrees.
--- NOTE | 2017-03-09 11:27 | NUR ---
Social Work: Readiness for d/c / multidisciplinary rounds Data: Pt is on day 4 of hospitalization. EMR reviewed, pt discussed in rounds. MD states pt likely to d/c today or tomorrow pending how advancing the diet goes. No D/C planning needs at this time. FISH HATCHERY SUPERVISOR will continue to follow if needs arise. Assessment: Pt who is independent at baseline, capable of self care at this time. Plan: Pt will d/c home via POV when medically stable, likely today or tomorrow per MD. No D/C planning needs at this time. FISH HATCHERY SUPERVISOR will continue to follow if needs arise. ELIZABETH Moreland
--- NOTE | 2017-03-09 11:57 | PCM.DIMED ---
Discharge Instructions Date of Service Mar 09, 2017 Dates of Hospitalization Mar 05, 2017 at 16:32 Discharge Diagnosis Discharge Diagnosis Ischemic colitis Diet Discharge Diet: Other (Full liquid x 2 days then progress as tolerated to soft diet) Activity Discharge Activity: No restrictions Call your provider Call your provider for: Fever or Chills, Shortness of breath, Bleeding, Excessive diarrhea, Weakness (unilateral) Patient Instructions Follow-up with PCP in: Other (4-5 days ,sooner if problems.) Linda Heredia MD Mar 09, 2017 11:57
[2017-03-09] MEDS ORDERED: POLY17PO6 PO (12:03)
[2017-03-09] MEDS ORDERED: OXYC1TAB24 PO (12:03)
[2017-03-09] MEDS ORDERED: ONDA4TAB6 PO (12:03)
[2017-03-09] MEDS ORDERED: MAGN400T23 PO (12:03)
--- NOTE | 2017-03-09 12:41 | NUR ---
Discharge patient is alert and orientedX3. Able to make needs known. Peripheral IV discontinued discontinued earlier, hospitalist aware. Reviewed discharge paper work, discharge instructions, discharge prescriptions and discharge appointment with PCP. Denies abdominal pain or discomfort. checked blood sugar 255. patient prefer to eat lunch at home and waiting for her to pick her up. waiting for ride,
--- NOTE | 2017-03-09 14:10 | NUR ---
Social Work: Discharge Data: Pt is on day 4 of hospitalization. EMR reviewed, D/C orders are in, disposition is home. No d/c planning needs at this time. MINE SUPERVISOR will continue to follow if needs arise. Assessment: Pt who is independent at baseline, currently capable of self care. Plan: Pt will d/c home today via POV. No d/c planning needs at this time. MINE SUPERVISOR will continue to follow if needs arise. ELIZABETH Moreland
--- NOTE | 2017-03-09 17:05 | PROG NOTE ---
[address] [address] PROGRESS NOTE PATIENT: LEVI OSMAN : 1955 MR#: [id number] ADMIT: 03/05/2017 JOB ID: [id number] DATE: 03/09/2017 SUBJECTIVE: The patient did not have much stool ejected with the Fleets enema last night. She has been able to pass some gas. She wishes to go home. Overall, she has improved. OBJECTIVE: Abdomen is soft. No guarding. Blood pressures are still not optimally controlled; a little on the hypertensive side, pulse in the 60s, breathing comfortably 95% on room air. Afebrile. Alert and oriented, appropriate, conversational. LABORATORY DATA: Comprehensive metabolic panel was unremarkable apart from magnesium; a little on the low side. White count has normalized. Hemoglobin is essentially stable. ASSESSMENT AND RECOMMENDATIONS: A 61-year-old female with resolving acute ischemic colitis. She should avoid nonsteroidal anti-inflammatory drugs. Continue to maintain excellent outpatient hydration and in essence reasonably normal blood pressures. Slowly advancing diet as tolerated. Colonoscopy in 3-4 weeks. I will make the arrangements with my office.
--- NOTE | 2017-03-09 18:34 | PCM.DC.MED ---
Discharge Summary Date of Service Mar 09, 2017 Dates of Hospitalization Date of Hospital Admission Mar 05, 2017 at 16:32 Date of Discharge: Mar 09, 2017 Providers: Admitting Physician: Richard Paz DO Primary Care Physician: Other,Physician Attending Physician: Linda Heredia MD Diagnosis at Time of Discharge Diagnosis at Time of Discharge Ischemic colitis Consultations Gastroenterology Procedures XRay, CTs & MRIs PROCEDURE: CT ANG CHEST/ABD/PEL W/WO CIBTRAST (PNL-7502) INDICATIONS: severe abd pain, hypertensive TECHNIQUE: Precontrast 5 mm thick sections acquired from the lung apices to the iliac crests. After the administration of intravenous contrast, 3 mm thick sections again acquired from the lung apices to the iliac crests. 3-dimensional maximum intensity projection (MIP) oblique sagittal and coronal reformats were then acquired, and/or 3-dimensional volume rendering reformats. For radiation dose reduction, the following was used: automated exposure control. COMPARISON: [facility], US, ABDOMEN LTD, 05/18/2016, 9:39. [facility], CT, CT ABD PELVIS W CON, 05/18/2016, 1:09. FINDINGS: Image quality: Excellent. AORTA: Aorta is normal in caliber. No aortic aneurysm or dissection. There is moderate calcification in aorta involving the aortic arch and distal aorta consistent with atherosclerosis. There is mild fusiform dilation of distal abdominal aorta below the renal artery measured 2.1 cm. CHEST: Lungs and pleura: There are calcified nodules in right upper lobe consistent with old granulomas. No acute airspace opacities. No pleural effusions or pneumothorax. Central and peripheral airways are patent and normal in caliber. Mediastinum: Heart size is normal. No pericardial effusion. Coronary artery calcification consistent with other sclerosis. No mediastinal or hilar adenopathy by size criteria. Calcified lymph nodes in mediastinum and dayne bilaterally are consistent with sequelae of lipomatous infection. Central pulmonary arteries are normal in size. Esophagus is normal in caliber. There is a small hiatal hernias. Bones and chest wall: Normal sist axillary lymph nodes are noted bilaterally, likely reactive. Thyroid gland is atrophic. No suspicious bony lesions. No vertebral body compression fractures. ABDOMEN: Vasculature: Celiac trunk and mesenteric arteries are patent. Renal arteries are also patent. Solid organs: Multiple calcified nodules in spleen and liver are consistent with old granulomas. Liver and spleen are normal in size. Gallbladder is surgically absent. Biliary system is non dilated. Pancreas enhances normally. No adrenal nodules. Both kidneys are normal in size and enhancement, without hydronephrosis. Peritoneum and bowel: There is segmental thickening and stranding in the splenic flexure and descending colon consistent with colitis. No free fluid or air. Bowel loops are normal in caliber. There are scattered sigmoid diverticula. No evidence for active diverticulitis. Nodes and vessels: No retroperitoneal or mesenteric adenopathy by size criteria. Inferior vena cava is normal in morphology. Bones: No suspicious bony lesions. No vertebral body compression fractures. There is severe degenerative disc disease at L5-S1 causing moderate central canal stenosis. Miscellaneous: No ventral hernias. IMPRESSION: 1. No aortic dissection. Atherosclerosis of aorta and coronary arteries. 2. Segment of thickening and stranding involving the splenic flexure and descending colon consistent with colitis. Differential diagnosis includes infectious etiology common femoral triple disease and ischemia. 3. Sigmoid diverticulosis. No active diverticulitis. 4. Remote granulomatous infections inthorax and abdomen. 5. Small hiatal hernia. 6. Severe degenerative disc isease at L5-S1 causing moderate central canal stenosis. Dictated by: Hoang Schmidt M.D. on 03/05/2017 at 14:41 Approved by: Hoang Schmidt M.D. on 03/05/2017 at 15:04 Brief History Patient is a 61-year-old female past medical history significant for hypertension diabetes mellitus in addition to alcohol use, tobacco dependence now in remission, presenting to the emergency department earlier today with a complaint of abdominal pain and bloody stools starting earlier this morning. Notes pain is worse in abdomen but also radiates to back. She had multiple bowel movements today which were containing of bright red clots, including one in the emergency department. She was drinking alcohol last night but has not been smoking cigarettes for the past few weeks that she began taping. Denies any nausea or vomiting. She had not been experiencing chills early in the day but she does endorse some chills during my evaluation at bedside on hospital floor. She has never had any abdominal pain such as this before, never experienced bloody diarrhea. She denies any associated chest pains or shortness of breath. Patient denies any headaches or dizziness or blurry vision. She had been in good state of health up until yesterday. Denies any sick contacts. Hospital Course 61-year-old female presenting with abdominal pain bloody stool admitted for further medical evaluation and treatment Acute, active # Acute abdominal pain with hematochezia secondary to ischemic colitis, POA, CT 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 Linn was consulted, recommended outpatient colonoscopy, possibly stool PCR. -pt still clinically not improving, although hematochezia cleared up, still require iv opioid frequently. -will get stool PCR to rule out infectious causes, suspicion is low and was negative -Progressed to full liquid diet patient had no problems with this and was anxious to get home so patient was discharged to home -Hold off on any antibiotics and monitor symptoms closely -Patient tolerated full liquid diet and was anxious to get home and hence was discharged on March 09 to home -Recommended starting a full liquid diet 2 days and progressed to soft diet as tolerated -appreciate daily follow up by -Patient had not had a bowel movement for several days during the hospitalization and was given a fleets mineral oil enema night prior to discharge and had good response to this Probable acute blood loss anemia or dilutional, POA, h/h dropped from 14.3/41.2 to 11.9/36.8 on 03/07, no signs of active bleeding -monitor h/h daily for now chronic, stable #Diabetes mellitus -continue lispro SS and lantus Exam Vital Signs (Last) Date Time Temp Pulse Resp B/P Pulse Ox O2 Delivery O2 Flow Rate FiO2 03/09/17 07:22 36.7 68 170/91 96 03/09/17 02:08 20 Room Air 03/08/17 00:08 1.00 Exam Constitutional: Middle-aged female in no acute distress Head: Normocephalic atraumatic Chest: Clear to auscultation Cor: Regular rate and rhythm S1-S2 without murmur Abdomen: Soft nontender bowel sounds present Extremities: No pedal edema Neuro: Alert and oriented 3, motor strength is intact bilaterally Skin: No rashes Psych: Mood and affect are appropriate Test 03/05/17 12:59 03/05/17 15:07 03/09/17 06:33 Prothrombin Time 10.8sec (8.1-12.5) Prothromb Time International Ratio 1.01ratio Hold Urine Received (Received) White Blood Count 9.9th/mm3 (3.8-10.1) Red Blood Count 3.52mil/mm3 (3.90-5.20) Hemoglobin 11.2g/dL (12.0-15.6) Hematocrit 34.3% (35.0-46.0) Mean Corpuscular Volume 97.4fL (81-100) Mean Corpuscular Hemoglobin 31.8pg (27.0-35.0) Mean Corpuscular Hemoglobin Concent 32.7% (32.0-37.0) Red Cell Distribution Width 12.3% (12.3-15.4) Platelet Count 182bil/L (150-400) Neutrophils (%) (Auto) 70.8% (40-74) Lymphocytes (%) (Auto) 19.4% (14-46) Monocytes (%) (Auto) 5.9% (4-12) Eosinophils (%) (Auto) 3.6% (0-5) Basophils (%) (Auto) 0.2% (0-3) Sodium Level 139mEq/L (134-144) Potassium Level 3.7mEq/L (3.5-5.2) Chloride Level 101mEq/L (97-108) Carbon Dioxide Level 26mmol/L (18-29) Blood Urea Nitrogen 5mg/dL (8-27) Creatinine 0.61mg/dL (0.57-1.00) Estimat Glomerular Filtration Rate 142mL/min (>59) Glucose Level 187mg/dL (60-99) Calcium Level 7.7mg/dL (8.5-10.1) Phosphorus Level 2.7mg/dL (2.5-4.9) Magnesium Level 1.5mg/dL (1.6-2.6) Total Bilirubin 0.3mg/dL (0.0-1.2) Aspartate Amino Transf (AST/SGOT) 25U/L (0-50) Alanine Aminotransferase (ALT/SGPT) 21U/L (0-32) Alkaline Phosphatase 61U/L (25-165) Total Protein 5.5g/dL (6.4-8.4) Albumin 3.0g/dL (3.4-5.0) Procalcitonin 0.08ng/mL (0.00-0.08) Discharge Medications Discharge Medications Aspirin (Aspirin) 81 Mg Tablet 81 MG PO QAM (Reported) Atenolol (Atenolol) 25 Mg Tablet 75 MG PO QAM (Reported) Fluoxetine (Fluoxetine) 60 Mg Tablet 60 MG PO QAM (Reported) Insulin Aspart (NovoLOG U100 Insulin Vial) 100 U/Ml U 20 UNIT SUBQ BIDWM ( Reported) WITH BRUNCH AND DINNER Insulin Glargine (Lantus U100 Solostar Insulin Pen) 100 Unit/1 Ml Insuln.pen 40 UNIT SUBQ HS (Reported) Levothyroxine (Levothyroxine) 100 Mcg Tablet 100 MCG PO QAM (Reported) Magnesium Oxide (Mag-Oxide) 400 Mg Tablet 400 MG PO BID Prescribed by: LINDA HEREDIA MD Vitamin B Complex 100 No.2 (B-100 Complex) 100 Mg Tablet.er 100 MG PO QAM ( Reported) As needed Albuterol HFA (Proair HFA) 8.5 Gm Hfa.aer.ad 1-2 PUFFS INHALATION Q4H PRN PRN For Shortness of Breath (Reported) Albuterol Neb Soln (Albuterol Neb Soln) 2.5 Mg/3 Ml Vial.neb 1 VIAL INHALATION Q4H PRN PRN For Shortness of Breath (Reported) Bismuth Subsalicylate (Digestive Relief) 262 Mg/15 Ml Oral.susp 262 MG PO QID PRN PRN For Dyspepsia or Heartburn (Reported) Fluticasone Propionate (Flonase Allergy Relief) 50 Mcg/Actuation [place].susp 1 SPRAY NOSTRIL DAILY PRN PRN ALLERGIES (Reported) Hydrocortisone Acetate (Hydrocortisone Acetate) 28.4 Gm Cream..g. 1 APPLIC TP BID PRN PRN ITCHING/PSORIASIS (Reported) Ibuprofen (Ibuprofen) 100 Mg Tablet 200 MG PO DAILY PRN PRN For Headache ( Reported) Ondansetron (Zofran) 4 Mg Tablet 4 MG PO Q4H PRN PRN For Nausea Prescribed by: LINDA HEREDIA MD Polyethylene Glycol 3350 (Miralax) 17 Gm Powd.pack 17 GM PO DAILY PRN PRN For Constipation Prescribed by: LINDA HEREDIA MD hydrOXYzine Hcl (HydrOXYzine Hcl) 25 Mg Tablet 25 MG PO Q4 PRN PRN For Itching ( Reported) oxyCODONE-Acetaminophen 5-325 mg (oxyCODONE-Acetaminophen 5-325 mg) 1 Each Tablet 1 TAB PO Q4H PRN PRN For Pain Prescribed by: LINDA HEREDIA MD Followup Plan Disposition: Home Follow-up plan With her primary care provider in 3-4 days sooner if problems Discharge Diet: Other (Full liquid x 2 days then progress as tolerated to soft diet) Discharge Activity: No restrictions Follow-up with PCP in: Other (4-5 days ,sooner if problems.) Time spent 60 minutes copies to: renae bowers Cheryl A MD Mar 09, 2017 18:34
== END 2017-03-09 12:50 | disposition home or self-care (01) | DRG 394 ==
LOC: SED 12:10 → MOC 16:32 → OBSVTOIN 16:32
PROVIDERS: ADMIT Family Medicine; ATTEND Specialist
DX: K55.9 Vascular disorder of intestine, unspecified (principal); K92.1 Melena; D62 Acute posthemorrhagic anemia; Z79.82 Long term (current) use of aspirin; Z79.4 Long term (current) use of insulin; Z77.29 Contact with and (suspected) exposure to other hazardous substances; Z87.891 Personal history of nicotine dependence; E11.9 Type 2 diabetes mellitus without complications

== ENCOUNTER → 2017-04-11 | Day surgery (SDC) | payer OTHER ==
[~2017-04-11] VITALS: Ht 166.4 cm; Wt 90.7 kg
[~2017-04-11] MED LIST changes: +0.9% Sodium Chloride 1,000 ML IV PRN; +ALBU18HF INH; -ALBU8.5H2 INHALATION; -DOCU250C2 PO; +EZET10TA PO; +MOME13HF2 IH; +ONDA4TAB6 PO; +OXYC1TAB24 PO; -OXYC5TAB72 PO; -POLY17PO6 PO; +Sodium Chloride LOK Flush 10 mL Syringe IV PRN; +fentaNYL-PF 50 mCg/mL 2 mL Inj IVPUSH PRN
[2017-04-11 07:36] VITALS: BP 161/78; PULSE 68; RESP 12; O2SAT 99
[2017-04-11 08:28] VITALS: BP 162/74; PULSE 71; RESP 14; O2SAT 99
[2017-04-11 08:36] VITALS: PULSE 75; RESP 14; O2SAT 98
[2017-04-11 08:37] VITALS: BP 154/79; PULSE 73; RESP 12; O2SAT 98
[2017-04-11 08:45] VITALS: BP 174/85; PULSE 74; RESP 12; O2SAT 96
--- NOTE | 2017-04-11 09:22 | ENDO ---
[address] [address] ENDOSCOPY PROCEDURE PATIENT: LEVI OSMAN : 1955 MR#: [id number] ADMIT: 04/11/2017 JOB ID: [id number] DATE: 04/11/2017 PRIMARY PROVIDER: Bruna To PROCEDURE: Colonoscopy. INDICATIONS: A 61-year-old female recently admitted for what appeared to be a spell of ischemic colitis. She has never had a colonoscopy for colon cancer screening. This is pursued today. She recovered from the symptoms that brought her into the hospital. She did not enjoy the bowel prep. EQUIPMENT: PCF-H180AL SEDATION: 1. Versed 4 mg. 2. Fentanyl 100 mcg. COMPLICATIONS: None identified. BOWEL PREPARATION: Fair, adequate exam. PROCEDURE INFO: After the risks and benefits were explained, written and verbal informed consent was obtained. The patient was brought into the Endoscopy Suite and placed in the left lateral decubitus position. Sedation was achieved as above. A digital rectal examination accomplished. No significant pathology appreciated. The scope was introduced into the rectum and advanced under direct visualization to the level of the cecum as identified by the appendiceal orifice and ileocecal valve. The terminal ileum was briefly accessed. The scope then slowly withdrawn to carefully examine the mucosa for any defects or lesions. Retroflexed views were avoided in the rectum. Multiple direct views were made through the dentate line for exclusion of pathology. The colon was decompressed. The scope removed from the patient who tolerated the procedure well. FINDINGS: No significant polyps, mass lesions, or inflammatory features identified throughout. There was absolutely no evidence of any residual colitis anywhere in the left colon. The terminal ileum appeared visually within normal limits. Mild internal hemorrhoids were noted on direct views. A classic small hyperplastic polyp was seen in the rectum. No other pathology appreciated throughout. ENDOSCOPIC DIAGNOSES: 1. Hemorrhoids. 2. Otherwise visually unremarkable colonoscopy to cecum. RECOMMENDATIONS: Repeat colonoscopy in 10 years' time, sooner should symptoms warrant an earlier exam. The patient is encouraged to follow up in primary care for blood pressure control. Her documented readings were quite elevated today, but she did not take any of her medications this morning. Cc: Bruna To
== END | disposition home or self-care (01) ==
LOC: END 07:00
PROVIDERS: ATTEND Internal Medicine Gastroenterology
DX: Z12.11 Encounter for screening for malignant neoplasm of colon (principal); K64.8 Other hemorrhoids; K62.1 Rectal polyp; I10 Essential (primary) hypertension; E03.9 Hypothyroidism, unspecified; E11.65 Type 2 diabetes mellitus with hyperglycemia; E78.5 Hyperlipidemia, unspecified; Z87.891 Personal history of nicotine dependence; Z79.4 Long term (current) use of insulin
CPT/HCPCS: 99153; G0121; G0500; J2250; J3010; J7030